=== PATIENT | female | born 1955 | race African-American/Black ===

== ENCOUNTER 2018-04-12 23:40 | Inpatient (IN) ==
[2018-04-13 01:34] LABS: Basophils % 0.5 % (0.0-0.8); Eosinophils # 0.1 10*3/uL (0.0-0.87); Eosinophils % 0.6 % (0.00-10.9); Hematocrit 36.8 VOL% (35.7-47.0); Hemoglobin 12.4 GM/DL (12.0-16.0); Immature Granulocytes % 0.1 %; Immature Granulocytes Absolute 0.01 #; Lymphocytes # 3.2 10*3/uL (1.4-4.0); Lymphocytes % 40.7 % (21.3-54.2); Mean Corpuscular HGB Conc 33.7 GM/DL (32-36); Mean Corpuscular Hemoglobin 31 PG (27-34); Mean Corpuscular Volume 91.8 FL (87-102); Mean Platelet Volume 11.6 FL (9.6-12.0); Monocytes # 0.7 10*3/uL (0.11-0.8); Monocytes % 8.5 % (1.7-12.7); Neutrophils # 3.9 10*3/uL (1.4-7.4); Neutrophils % 49.6 % (38.7-73.9); Platelet Count 168 T/CUMM (130-400); Red Blood Count 4.01 MC/CUMM (3.8-5.5); Red Cell Distribution Width 12.3 % (9.3-17.3); White Blood Count 7.8 T/CUMM (4-12)
[2018-04-13 02:12] LABS: Troponin I 0.437 NG/ML (0.00-0.045)
[2018-04-13 02:24] LABS: Calcium 9.1 MG/DL (8.5-10.1); Osmolality,Calculated 284.3 MOS/KG (273-304); Potassium 3.3 MMOL/L (3.5-5.1)
[2018-04-13] MEDS ORDERED: POTASSIUM CHLORIDE 20 MEQ PACK PO ONE (09:08)
[2018-04-13] MEDS: CLOPIDOGREL 75 MG TABLET PO SCH (09:15)
[2018-04-13] MEDS: LISINOPRIL 20 MG TABLET PO SCH (09:15)
[2018-04-13] MEDS: ASPIRIN CHEW 81 MG TABLET PO SCH (09:15)
[2018-04-13] MEDS: hydroCHLOROthiazide 25 MG TABLET PO SCH (09:15)
[2018-04-13] MEDS: FEXOFENADINE 180 MG TABLET PO SCH (09:15)
[2018-04-13] MEDS: POLYETHYLENE GLYCOL POWDER 17 GM PACK PO SCH (09:15)
[2018-04-13] MEDS: PITAVASTATIN 2 MG TABLET PO SCH (09:16)
[2018-04-13] MEDS: amLODIPine 10 MG TABLET PO SCH (09:16)
[2018-04-13] MEDS: FAMOTIDINE 20 MG TABLET PO SCH ×2 (09:16→20:48)
[2018-04-13] MEDS: FLUTICASONE 50 MCG NASAL SPRAY 16 GM BOTTLE BOTH NARES SCH (09:36)
[2018-04-13 09:53] LABS: Risk Ratio 2.85
[2018-04-13 11:12] LABS: Apearance,Urine Slightly Hazy (Clear); Bacteria,Urine Occasional /HPF (Few); Bilirubin,Urine Negative (Negative); Blood, Urine Negative (Negative); Glucose,Urine (UA) Negative (Negative); Hyaline Casts,Urine 1 /LPF (0-3); Ketones,Urine Negative (Negative); Mucus,Urine Moderate /LPF (Occasional); Nitrite,Urine Negative (Negative); Protein,Urine Negative; RBC,Urine 1 /HPF (0-4); Squamous Epithelial Cell,Urine Occasional /HPF (0-10); Urine Color Yellow (Yellow); Urine Specific Gravity 1.023 (1.001-1.035); WBC,Urine 1 /HPF (0-6)
[2018-04-13 15:45] LABS: Troponin I 0.192 NG/ML (0.00-0.045)
[2018-04-14 03:45] LABS: Basophils % 0.8 % (0.0-0.8); Eosinophils # 0.3 10*3/uL (0.0-0.87); Eosinophils % 5.1 % (0.00-10.9); Hematocrit 36.8 VOL% (35.7-47.0); Hemoglobin 11.7 GM/DL (12.0-16.0); Immature Granulocytes % 0.2 %; Immature Granulocytes Absolute 0.01 #; Lymphocytes # 2.8 10*3/uL (1.4-4.0); Lymphocytes % 55.8 % (21.3-54.2); Mean Corpuscular HGB Conc 31.8 GM/DL (32-36); Mean Corpuscular Hemoglobin 30 PG (27-34); Mean Corpuscular Volume 93.9 FL (87-102); Mean Platelet Volume 12.4 FL (9.6-12.0); Monocytes # 0.5 10*3/uL (0.11-0.8); Monocytes % 10.2 % (1.7-12.7); Neutrophils # 1.4 10*3/uL (1.4-7.4); Neutrophils % 27.9 % (38.7-73.9); Platelet Count 167 T/CUMM (130-400); Red Blood Count 3.92 MC/CUMM (3.8-5.5); Red Cell Distribution Width 12.3 % (9.3-17.3); White Blood Count 5.1 T/CUMM (4-12)
[2018-04-14 04:03] LABS: Calcium 8.6 MG/DL (8.5-10.1); Osmolality,Calculated 285.3 MOS/KG (273-304); Potassium 4.3 MMOL/L (3.5-5.1)
[2018-04-14 04:22] LABS: Band Neutrophils 5 % (0-10); Eosinophils 4 % (0-10); Lymphocytes 70 % (20-55); Platelet Estimate Normal; Segmented Neutrophils 10 % (50-85); Total Cells Counted 100
[2018-04-14] MEDS ORDERED: BISACODYL 5 MG TABLET PO PRN (08:02)
[2018-04-14] MEDS ORDERED: ACETAMINOPHEN 325 MG TABLET PO PRN (08:02)
[2018-04-14] MEDS ORDERED: guaiFENesin/DM ER 600-30 MG TABLET PO PRN (08:02)
[2018-04-14] MEDS ORDERED: DOCUSATE SODIUM 100 MG CAPSULE PO PRN (08:02)
[2018-04-14] MEDS ORDERED: ZALEPLON 5 MG CAPSULE PO PRN (08:02)
[2018-04-14] MEDS ORDERED: PROMETHAZINE 25 MG TABLET PO PRN (08:02)
[2018-04-14] MEDS ORDERED: MAGNESIUM SULF RIDER 4 GM in PREMIX 1 EACH IV PRN (08:02)
[2018-04-14] MEDS ORDERED: ONDANSETRON 4 MG/2 ML VIAL IV PRN (08:02)
[2018-04-14] MEDS ORDERED: diphenhydrAMINE CAP 25 MG CAPSULE PO PRN (08:02)
[2018-04-14] MEDS ORDERED: MAGNESIUM SULF RIDER 2 GM in PREMIX 1 EACH IV PRN (08:02)
[2018-04-14] MEDS: FEXOFENADINE 180 MG TABLET PO SCH (09:34)
[2018-04-14] MEDS: amLODIPine 10 MG TABLET PO SCH (09:34)
[2018-04-14] MEDS: CLOPIDOGREL 75 MG TABLET PO SCH (09:34)
[2018-04-14] MEDS: hydroCHLOROthiazide 25 MG TABLET PO SCH (09:34)
[2018-04-14] MEDS: PITAVASTATIN 2 MG TABLET PO SCH (09:34)
[2018-04-14] MEDS: FAMOTIDINE 20 MG TABLET PO SCH ×2 (09:34→21:25)
[2018-04-14] MEDS: ASPIRIN CHEW 81 MG TABLET PO SCH (09:34)
[2018-04-14] MEDS: PANTOPRAZOLE 40 MG TABLET PO SCH (09:34)
[2018-04-14] MEDS: FLUTICASONE 50 MCG NASAL SPRAY 16 GM BOTTLE BOTH NARES SCH (09:35)
[2018-04-14] MEDS: POLYETHYLENE GLYCOL POWDER 17 GM PACK PO SCH (09:35)
[2018-04-14] MEDS: LISINOPRIL 20 MG TABLET PO SCH (09:35)
[2018-04-14] MEDS: SODIUM CHLORIDE 0.9% 1,000 ML IV SCH (17:37)
[2018-04-15] MEDS: SODIUM CHLORIDE 0.9% 1,000 ML IV SCH (01:45)
[2018-04-15 03:22] LABS: Basophils % 0.6 % (0.0-0.8); Eosinophils # 0.2 10*3/uL (0.0-0.87); Eosinophils % 4.3 % (0.00-10.9); Hemoglobin 11.4 GM/DL (12.0-16.0); Immature Granulocytes % 0.2 %; Immature Granulocytes Absolute 0.01 #; Lymphocytes # 2.7 10*3/uL (1.4-4.0); Lymphocytes % 53.3 % (21.3-54.2); Mean Corpuscular HGB Conc 32.6 GM/DL (32-36); Mean Corpuscular Hemoglobin 31 PG (27-34); Mean Corpuscular Volume 93.6 FL (87-102); Mean Platelet Volume 12.4 FL (9.6-12.0); Monocytes # 0.6 10*3/uL (0.11-0.8); Monocytes % 10.7 % (1.7-12.7); Neutrophils # 1.6 10*3/uL (1.4-7.4); Neutrophils % 30.9 % (38.7-73.9); Platelet Count 161 T/CUMM (130-400); Red Blood Count 3.74 MC/CUMM (3.8-5.5); Red Cell Distribution Width 12.2 % (9.3-17.3); White Blood Count 5.1 T/CUMM (4-12)
[2018-04-15 03:37] LABS: Calcium 8.6 MG/DL (8.5-10.1); Osmolality,Calculated 286.1 MOS/KG (273-304); Potassium 3.9 MMOL/L (3.5-5.1)
[2018-04-15 03:54] LABS: Eosinophils 3 % (0-10); Hypochromasia Slight; Lymphocytes 66 % (20-55); Platelet Estimate Normal; Reactive Lymphocytes 1+; Segmented Neutrophils 25 % (50-85); Total Cells Counted 100
[2018-04-15] MEDS: POLYETHYLENE GLYCOL POWDER 17 GM PACK PO SCH (09:21)
[2018-04-15] MEDS: FLUTICASONE 50 MCG NASAL SPRAY 16 GM BOTTLE BOTH NARES SCH (09:22)
[2018-04-15] MEDS: amLODIPine 10 MG TABLET PO SCH (09:23)
[2018-04-15] MEDS: FAMOTIDINE 20 MG TABLET PO SCH (09:23)
[2018-04-15] MEDS: LISINOPRIL 20 MG TABLET PO SCH (09:23)
[2018-04-15] MEDS: PITAVASTATIN 2 MG TABLET PO SCH (09:23)
[2018-04-15] MEDS: FEXOFENADINE 180 MG TABLET PO SCH (09:23)
[2018-04-15] MEDS: CLOPIDOGREL 75 MG TABLET PO SCH (09:23)
[2018-04-15] MEDS: PANTOPRAZOLE 40 MG TABLET PO SCH (09:23)
[2018-04-15] MEDS: ASPIRIN CHEW 81 MG TABLET PO SCH (09:23)
[2018-04-15 11:36] VITALS: BP 147/89
== END 2018-04-15 14:02 | disposition home or self-care (01) | DRG 149 ==
LOC: N.TELES → N.TELENOUT 23:40 → N.TELES 23:41 → EDSTATUS 04-14 12:39
PROVIDERS: ADMIT Internal Medicine Cardiovascular Disease; ATTEND Internal Medicine Cardiovascular Disease